=== PATIENT | male | born 1980 | race Caucasian/White ===

== ENCOUNTER → 2017-08-05 | Outpatient (REF) ==
[~2017-08-05] MED LIST: AZIT-9 PO; LOR5/325 PO; OMEP-218 PO; OSE75 PO
== END ==
LOC: AUD 10:45
PROVIDERS: ATTEND Internal Medicine
DX: Z01.10 Encounter for examination of ears and hearing without abnormal findings (principal)
CPT/HCPCS: 92552

== ENCOUNTER → 2018-08-31 | Outpatient (REF) | LOC: AUD 09:15 | PROVIDERS: ATTEND Internal Medicine | DX: Z01.12 Encounter for hearing conservation and treatment (principal) | CPT/HCPCS: 92552 ==